=== PATIENT | female | born 1965 | race American Indian/Alaskan Native ===

== ENCOUNTER 2022-01-12 04:04 | Inpatient (IN) | payer MEDICAID ==
--- NOTE | 2022-01-12 04:44 | XRay Report ---
CHEST 1 VIEW 01/12/2022 3:35 AM INDICATION / CLINICAL INFORMATION: Dyspnea. COMPARISON: None available. FINDINGS: SUPPORT DEVICES: None. HEART / MEDIASTINUM: No significant abnormality. LUNGS / PLEURA: Mild increased interstitial markings greater inferiorly. No pneumothorax. ADDITIONAL FINDINGS: No significant additional findings. IMPRESSION: Mild vascular congestion/edema. Signer Name: Leon Sim MD Signed: 01/12/2022 4:39 AM Workstation Name: [id number]
[2022-01-12] MEDS ORDERED: IPRATROPIUM 0.02% NEBU 2.5 ML IH ONE (05:13)
[2022-01-12] MEDS ORDERED: ALBUTEROL 2.5 MG/3 ML NEBU IH ONE (05:13)
[2022-01-12 05:15] LABS: Basophils % (Auto) 0.3 % (0.0-1.8); Eosinophils # (Auto) 0.2 K/mm3 (0.0-0.4); Eosinophils % (Auto) 2.5 % (0.0-4.3); Hematocrit 44.6 % (30.3-42.9); Hemoglobin 14.6 gm/dl (10.1-14.3); Lymphocytes # (Auto) 3.5 K/mm3 (1.2-5.4); Lymphocytes % (Auto) 37.5 % (13.4-35.0); Mean Corpuscular HGB Conc 33 % (30-34); Mean Corpuscular Volume 88 fl (79-97); Monocytes # (Auto) 0.6 K/mm3 (0.0-0.8); Monocytes % (Auto) 6.3 % (0.0-7.3); Platelet Count 259 K/mm3 (140-440); Red Blood Count 5.05 M/mm3 (3.65-5.03); Red Cell Distribution Width 15.4 % (13.2-15.2)
[2022-01-12 05:21] LABS: INR 0.97 (0.87-1.13)
[2022-01-12 05:32] LABS: Creatine Kinase MB 7.9 ng/mL (0.0-4.0)
[2022-01-12 05:33] LABS: Alanine Aminotransferase 15 units/L (7-56); Albumin 4.1 g/dL (3.9-5); BUN/Creatinine Ratio 17; Blood Urea Nitrogen 19 mg/dL (7-17); Calcium 9.3 mg/dL (8.4-10.2); Hemolysis Index 10
[2022-01-12] MEDS ORDERED: FUROSEMIDE 40 MG/4 ML INJ IV ONE (05:34)
--- NOTE | 2022-01-12 05:54 | Emergency Department Report ---
ED Shortness of Breath HPI - General Chief Complaint: Dyspnea/Respdistress Stated Complaint: POSS STEMI Time Seen by Provider: 01/12/22 04:13 Source: patient, EMS Mode of arrival: Stretcher Limitations: No Limitations - History of Present Illness Initial Comments: 56 YR OLD FEMALE W/ CHEST PAIN & RESPIRATORY DISTRESSpt is currently on home o2 2 litres, started having CP and MD JUDAH Complaint: shortness of breath -: Gradual, days(s) Pain Scale: 3 Consistency: intermittent Improves With: nothing, oxygen Associated Symptoms: chest pain - Related Data Home Oxygen Therapy: Yes Home Oxygen Amount: 2 Liters Home Medications Medication Instructions Recorded Confirmed Last Taken No Known Home Medications [No 01/13/22 01/15/22 Unknown Reported Home Medications] Allergies Allergy/AdvReac Type Severity Reaction Status Date / Time No Known Allergies Allergy Unverified 01/12/22 04:36 ED Review of Systems ROS: Stated complaint: POSS STEMI Other details as noted in HPI Constitutional: denies: chills, fever Eyes: denies: eye pain, eye discharge, vision change ENT: denies: ear pain, throat pain Respiratory: denies: cough, shortness of breath, wheezing Cardiovascular: denies: chest pain, palpitations Endocrine: no symptoms reported Gastrointestinal: denies: abdominal pain, nausea, diarrhea Genitourinary: denies: urgency, dysuria, discharge Musculoskeletal: denies: back pain, joint swelling, arthralgia Skin: denies: rash, lesions Neurological: denies: headache, weakness, paresthesias Psychiatric: denies: anxiety, depression Hematological/Lymphatic: denies: easy bleeding, easy bruising ED Past Medical Hx - Past Medical History Hx Hypertension: Yes Hx Diabetes: Yes Hx Asthma: Yes - Social History Smoking Status: Unknown if ever smoked Substance Use Type: Alcohol - Medications Home Medications: Home Medications Medication Instructions Recorded Confirmed Last Taken Type No Known Home Medications [No 01/13/22 01/15/22 Unknown History Reported Home Medications] ED Physical Exam - General Limitations: No Limitations General appearance: alert, in distress - Head Head exam: Present: atraumatic, normocephalic - Eye Eye exam: Present: normal appearance - ENT ENT exam: Present: mucous membranes moist - Neck Neck exam: Present: normal inspection - Respiratory Respiratory exam: Present: normal lung sounds bilaterally, respiratory distress, wheezes, rales - Cardiovascular Cardiovascular Exam: Present: regular rate, normal rhythm. Absent: systolic murmur, diastolic murmur, rubs, gallop - GI/Abdominal GI/Abdominal exam: Present: soft, normal bowel sounds - Extremities Exam Extremities exam: Present: normal inspection - Back Exam Back exam: Present: normal inspection - Neurological Exam Neurological exam: Present: alert, oriented X3 - Psychiatric Psychiatric exam: Present: normal affect, normal mood - Skin Skin exam: Present: warm, dry, intact, normal color. Absent: rash ED Course Vital Signs 01/12/22 01/12/22 01/12/22 04:16 04:30 04:32 Temperature 98.5 F Pulse Rate 96 H 100 H 100 H Pulse Rate [ Anterior Bilateral Throughout] Respiratory 22 34 H 21 Rate Respiratory Rate [Anterior Bilateral Throughout] Blood Pressure 184/92 180/90 Blood Pressure [Left] O2 Sat by Pulse 100 100 Oximetry 01/12/22 01/12/22 01/12/22 04:45 04:50 05:01 Temperature Pulse Rate 99 H 97 H Pulse Rate [ 93 H Anterior Bilateral Throughout] Respiratory 21 18 Rate Respiratory 24 Rate [Anterior Bilateral Throughout] Blood Pressure 180/90 153/84 Blood Pressure [Left] O2 Sat by Pulse 90 Oximetry 01/12/22 01/12/22 01/12/22 05:15 05:31 05:45 Temperature Pulse Rate 96 H 102 H 100 H Pulse Rate [ Anterior Bilateral Throughout] Respiratory 19 20 17 Rate Respiratory Rate [Anterior Bilateral Throughout] Blood Pressure 153/84 176/83 176/83 Blood Pressure [Left] O2 Sat by Pulse 93 97 96 Oximetry 01/12/22 01/12/22 01/12/22 06:01 06:15 06:16 Temperature Pulse Rate 103 H 94 H Pulse Rate [ Anterior Bilateral Throughout] Respiratory 20 20 Rate Respiratory Rate [Anterior Bilateral Throughout] Blood Pressure 157/81 157/81 Blood Pressure [Left] O2 Sat by Pulse 93 96 94 Oximetry 01/12/22 01/12/22 01/12/22 06:30 07:01 07:31 Temperature Pulse Rate 94 H 93 H 94 H Pulse Rate [ Anterior Bilateral Throughout] Respiratory 19 17 19 Rate Respiratory Rate [Anterior Bilateral Throughout] Blood Pressure 157/81 139/67 145/74 Blood Pressure [Left] O2 Sat by Pulse 96 98 98 Oximetry 01/12/22 01/12/22 01/12/22 07:45 08:01 08:31 Temperature Pulse Rate 95 H 91 H 89 Pulse Rate [ Anterior Bilateral Throughout] Respiratory 17 18 21 Rate Respiratory Rate [Anterior Bilateral Throughout] Blood Pressure 145/74 160/78 134/72 Blood Pressure [Left] O2 Sat by Pulse 97 96 96 Oximetry 01/12/22 01/12/22 01/12/22 09:01 09:15 09:31 Temperature Pulse Rate 87 89 89 Pulse Rate [ Anterior Bilateral Throughout] Respiratory 16 18 14 Rate Respiratory Rate [Anterior Bilateral Throughout] Blood Pressure 148/80 148/80 143/87 Blood Pressure [Left] O2 Sat by Pulse 97 100 99 Oximetry 01/12/22 01/12/22 01/12/22 09:45 10:01 10:15 Temperature Pulse Rate 88 88 85 Pulse Rate [ Anterior Bilateral Throughout] Respiratory 15 13 16 Rate Respiratory Rate [Anterior Bilateral Throughout] Blood Pressure 143/87 172/83 172/83 Blood Pressure [Left] O2 Sat by Pulse 99 100 98 Oximetry 01/12/22 01/12/22 01/12/22 10:31 10:45 11:01 Temperature Pulse Rate 86 85 84 Pulse Rate [ Anterior Bilateral Throughout] Respiratory 15 16 16 Rate Respiratory Rate [Anterior Bilateral Throughout] Blood Pressure 139/80 172/83 155/73 Blood Pressure [Left] O2 Sat by Pulse 98 98 98 Oximetry 01/12/22 01/12/22 01/12/22 11:15 11:31 12:01 Temperature Pulse Rate 86 87 91 H Pulse Rate [ Anterior Bilateral Throughout] Respiratory 21 15 16 Rate Respiratory Rate [Anterior Bilateral Throughout] Blood Pressure 132/70 167/87 169/116 Blood Pressure [Left] O2 Sat by Pulse 99 100 99 Oximetry 01/12/22 01/12/22 01/12/22 12:15 12:30 12:45 Temperature Pulse Rate 89 87 94 H Pulse Rate [ Anterior Bilateral Throughout] Respiratory 15 14 20 Rate Respiratory Rate [Anterior Bilateral Throughout] Blood Pressure 169/116 179/91 169/116 Blood Pressure [Left] O2 Sat by Pulse 98 99 96 Oximetry 01/12/22 01/12/22 01/12/22 13:01 13:15 13:31 Temperature Pulse Rate 95 H 89 88 Pulse Rate [ Anterior Bilateral Throughout] Respiratory 28 H 16 19 Rate Respiratory Rate [Anterior Bilateral Throughout] Blood Pressure 157/83 179/91 140/66 Blood Pressure [Left] O2 Sat by Pulse 96 98 98 Oximetry 01/12/22 01/12/22 01/12/22 13:45 14:01 14:15 Temperature Pulse Rate 88 87 87 Pulse Rate [ Anterior Bilateral Throughout] Respiratory 19 22 20 Rate Respiratory Rate [Anterior Bilateral Throughout] Blood Pressure 140/66 141/66 141/66 Blood Pressure [Left] O2 Sat by Pulse 98 95 93 Oximetry 01/12/22 01/12/22 01/12/22 15:31 15:45 16:01 Temperature Pulse Rate 84 87 87 Pulse Rate [ Anterior Bilateral Throughout] Respiratory 19 21 16 Rate Respiratory Rate [Anterior Bilateral Throughout] Blood Pressure 146/68 146/68 181/85 Blood Pressure [Left] O2 Sat by Pulse 94 94 97 Oximetry 01/12/22 01/12/22 01/12/22 16:15 16:31 16:45 Temperature Pulse Rate 85 84 84 Pulse Rate [ Anterior Bilateral Throughout] Respiratory 22 22 20 Rate Respiratory Rate [Anterior Bilateral Throughout] Blood Pressure 181/85 151/66 151/66 Blood Pressure [Left] O2 Sat by Pulse 98 97 94 Oximetry 01/12/22 01/12/22 01/12/22 17:01 17:57 18:01 Temperature Pulse Rate 84 93 H Pulse Rate [ Anterior Bilateral Throughout] Respiratory 24 29 H Rate Respiratory Rate [Anterior Bilateral Throughout] Blood Pressure 145/67 175/91 Blood Pressure [Left] O2 Sat by Pulse 97 93 98 Oximetry 01/12/22 01/12/22 01/12/22 18:17 18:31 18:45 Temperature 98.2 F Pulse Rate 95 H 94 H Pulse Rate [ Anterior Bilateral Throughout] Respiratory 22 18 Rate Respiratory Rate [Anterior Bilateral Throughout] Blood Pressure 136/115 169/81 Blood Pressure [Left] O2 Sat by Pulse 94 94 Oximetry 01/12/22 01/12/22 01/12/22 19:01 19:15 19:31 Temperature Pulse Rate 94 H 91 H 94 H Pulse Rate [ Anterior Bilateral Throughout] Respiratory 26 H 20 20 Rate Respiratory Rate [Anterior Bilateral Throughout] Blood Pressure 176/86 176/86 152/70 Blood Pressure [Left] O2 Sat by Pulse 98 100 Oximetry 01/12/22 01/12/22 01/12/22 19:45 20:15 20:31 Temperature 98.3 F Pulse Rate 98 H 95 H 94 H Pulse Rate [ Anterior Bilateral Throughout] Respiratory 21 17 23 Rate Respiratory Rate [Anterior Bilateral Throughout] Blood Pressure 168/81 127/64 Blood Pressure 152/70 [Left] O2 Sat by Pulse 97 Oximetry ED Medical Decision Making - Lab Data Result diagrams: 01/12/22 04:29 01/18/22 08:29 - EKG Data -: EKG Interpreted by Me EKG shows normal: sinus rhythm - EKG Data Interpretation: [facility] Critical care attestation.: If time is entered above; I have spent that time in minutes in the direct care of this critically ill patient, excluding procedure time. ED Disposition Clinical Impression: SOB (shortness of breath) Acute exacerbation of CHF (congestive heart failure) Qualifiers: Heart failure type: combined systolic and diastolic Qualified Code(s): I50.43 - Acute on chronic combined systolic (congestive) and diastolic (congestive) heart failure Disposition: 09 ADMITTED INPATIENT Is pt being admited?: Yes Does the pt Need Aspirin: No Condition: Stable
--- NOTE | 2022-01-12 07:14 | Cat Scan Report ---
CTA CHEST WITH CONTRAST INDICATION / CLINICAL INFORMATION: Shortness of breath. TECHNIQUE: Axial CT images were obtained through the chest after injection of Omnipaque 350, 100 cc I V contrast. 3 plane MIP and/or 3D reconstructions were produced. All CT scans at this location are pe rformed using CT dose reduction for ALARA by means of automated exposure control. COMPARISON: None available. FINDINGS: PULMONARY ARTERIES: No pulmonary emboli. THORACIC AORTA: No significant abnormality. HEART: No significant abnormality. CORONARY ARTERY CALCIFICATION: Mild. MEDIASTINUM / [place]: No significant abnormality. PLEURA: No pleural effusion. No pneumothorax. LUNGS: Mild edema. Mild basilar atelectasis right greater than left. No dense infiltrate. ADDITIONAL FINDINGS: Prominent thickening of the distal esophagus. UPPER ABDOMEN: No acute findings. SKELETAL STRUCTURES: No significant osseous abnormality. IMPRESSION: 1. No CT evidence for pulmonary embolism. 2. Mild edema in basilar atelectasis. 3. Prominent thickening of the distal esophagus. Peptic disease versus underlying lesion. Signer Name: Leon Sim MD Signed: 01/12/2022 7:09 AM Workstation Name: [id number]
--- NOTE | 2022-01-12 16:56 | History and Physical Report ---
History of Present Illness Date of examination: 01/12/22 Date of admission: 01/12/2022 Chief complaint: Increasing shortness of breath for 3 days History of present illness: 56-year-old female with history of CHF hypertension and diabetes not on any medications and no follow-up with any physician because of her financial condition comes in for increasing shortness of breath for the last 3 days associated with orthopnea. Shortness of breath is on minimal exertion walking up to 10 steps. Consistent with class IV NYHA symptoms. No PND attacks. No chest pain. No fever or chills. No cough. Patient was hypoxic while in the emergency room needing 3 L of nasal cannula oxygen - Past Medical History --Hypertension: Yes --Diabetes: Yes --Asthma: Yes - Past surgical history right leg fracture with surgery 3 - Family history --Htn - Social History Smoking Status: Unknown if ever smoked Substance Use Type: Alcohol Review of Systems --ROS: Stated complaint: POSS STEMI Other details as noted in HPI Constitutional: denies: chills, fever Eyes: denies: eye pain, eye discharge, vision change ENT: denies: ear pain, throat pain Respiratory: denies: cough, shortness of breath, wheezing Cardiovascular: denies: chest pain, palpitations Endocrine: no symptoms reported Gastrointestinal: denies: abdominal pain, nausea, diarrhea Genitourinary: denies: urgency, dysuria, discharge Musculoskeletal: denies: back pain, joint swelling, arthralgia Skin: denies: rash, lesions Neurological: denies: headache, weakness, paresthesias Psychiatric: denies: anxiety, depression Hematological/Lymphatic: denies: easy bleeding, easy bruising Medications and Allergies Allergies Allergy/AdvReac Type Severity Reaction Status Date / Time No Known Allergies Allergy Unverified 01/12/22 04:36 Exam - Constitutional Vitals: Temp Pulse Resp BP Pulse Ox 98.5 F 85 22 181/85 98 01/12/22 04:32 01/12/22 16:15 01/12/22 16:15 01/12/22 16:15 01/12/22 16:15 General appearance: Present: mild distress, well-nourished - EENT Eyes: Present: PERRL ENT: hearing intact, clear oral mucosa - Neck Neck: Present: supple, normal ROM - Respiratory Respiratory effort: normal Respiratory: bilateral: CTA, rales (scattered) - Cardiovascular Heart rate: 97 Rhythm: regular Heart Sounds: Present: S1 & S2. Absent: rub, click - Extremities Extremities: pulses symmetrical, No edema Peripheral Pulses: within normal limits - Abdominal General gastrointestinal: Present: soft, non-tender, non-distended, normal bowel sounds Female genitourinary: Present: normal - Rectal Rectal Exam: deferred - Integumentary Integumentary: Present: clear, warm, dry - Musculoskeletal Musculoskeletal: gait normal, strength equal bilaterally - Psychiatric Psychiatric: appropriate mood/affect, intact judgment & insight - Neurologic Neurologic: CNII-XII intact, moves all extremities - Allied Health Allied health notes reviewed: nursing, case management HEART Score - HEART Score History: Moderately suspicious Age: 45-65 Risk factors: > 3 risk factors or hx of atherosclerotic disease Troponin: Troponin T < 0.010 ng/mL (0.00-0.029) 01/12/22 04:29 - Critical Actions Critical Actions: 4-6 pts:12-16.6% risk of adverse cardiac event. Should be admitted Results - Labs CBC & Chem 7: 01/12/22 04:29 01/13/22 03:50 Labs: Laboratory Last Values WBC 9.3 K/mm3 (4.5-11.0) 01/12/22 04:29 RBC 5.05 M/mm3 (3.65-5.03) H 01/12/22 04:29 Hgb 14.6 gm/dl (10.1-14.3) H 01/12/22 04:29 Hct 44.6 % (30.3-42.9) H 01/12/22 04:29 MCV 88 fl (79-97) 01/12/22 04:29 MCH 29 pg (28-32) 01/12/22 04:29 MCHC 33 % (30-34) 01/12/22 04:29 RDW 15.4 % (13.2-15.2) H 01/12/22 04:29 Plt Count 259 K/mm3 (140-440) 01/12/22 04:29 Lymph % (Auto) 37.5 % (13.4-35.0) H 01/12/22 04:29 Carbon % (Auto) 6.3 % (0.0-7.3) 01/12/22 04:29 Eos % (Auto) 2.5 % (0.0-4.3) 01/12/22 04:29 Baso % (Auto) 0.3 % (0.0-1.8) 01/12/22 04:29 Lymph # (Auto) 3.5 K/mm3 (1.2-5.4) 01/12/22 04:29 Carbon # (Auto) 0.6 K/mm3 (0.0-0.8) 01/12/22 04:29 Eos # (Auto) 0.2 K/mm3 (0.0-0.4) 01/12/22 04:29 Baso # (Auto) 0.0 K/mm3 (0.0-0.1) 01/12/22 04:29 Seg Neutrophils % 53.4 % (40.0-70.0) 01/12/22 04:29 Seg Neutrophils # 5.0 K/mm3 (1.8-7.7) 01/12/22 04:29 PT 13.9 Sec. (12.2-14.9) 01/12/22 04:29 INR 0.97 (0.87-1.13) 01/12/22 04:29 D-Dimer 242.29 ng/mlDDU (0-234) H 01/12/22 04:29 Sodium 137 mmol/L (137-145) 01/12/22 04:29 Potassium 3.5 mmol/L (3.6-5.0) L 01/12/22 04:29 Chloride 97.3 mmol/L (98-107) L 01/12/22 04:29 Carbon Dioxide 27 mmol/L (22-30) 01/12/22 04:29 Anion Gap 16 mmol/L 01/12/22 04:29 BUN 19 mg/dL (7-17) H 01/12/22 04:29 Creatinine 1.1 mg/dL (0.6-1.2) 01/12/22 04:29 Estimated GFR > 60 ml/min 01/12/22 04:29 BUN/Creatinine Ratio 17 % 01/12/22 04:29 Glucose 274 mg/dL (65-100) H 01/12/22 04:29 Lactic Acid 2.00 mmol/L (0.7-2.0) 01/12/22 04:29 Calcium 9.3 mg/dL (8.4-10.2) 01/12/22 04:29 Magnesium 2.70 mg/dL (1.7-2.3) H 01/12/22 04:29 Total Bilirubin 0.30 mg/dL (0.1-1.2) 01/12/22 04:29 AST 23 units/L (5-40) 01/12/22 04:29 ALT 15 units/L (7-56) 01/12/22 04:29 Alkaline Phosphatase 126 units/L (35-129) 01/12/22 04:29 Total Creatine Kinase 321 units/L (30-135) H 01/12/22 04:29 CK-MB (CK-2) 7.9 ng/mL (0.0-4.0) H 01/12/22 04:29 CK-MB (CK-2) Rel Index 2.4 (0-4) 01/12/22 04:29 Troponin T < 0.010 ng/mL (0.00-0.029) 01/12/22 04:29 NT-Pro-B Natriuret Pep 76.30 pg/mL (0-900) 01/12/22 04:29 Total Protein 7.6 g/dL (6.3-8.2) 01/12/22 04:29 Albumin 4.1 g/dL (3.9-5) 01/12/22 04:29 Albumin/Globulin Ratio 1.2 % 01/12/22 04:29 Lipase 21 units/L (13-60) 01/12/22 04:29 Short CBC 01/12/22 Range/Units 04:29 WBC 9.3 (4.5-11.0) K/mm3 Hgb 14.6 H (10.1-14.3) gm/dl Hct 44.6 H (30.3-42.9) % Plt Count 259 (140-440) K/mm3 BMP 01/12/22 04:29 Sodium 137 Potassium 3.5 L Chloride 97.3 L Carbon Dioxide 27 BUN 19 H Creatinine 1.1 Glucose 274 H Calcium 9.3 Cardiac Enzymes 01/12/22 Range/Units 04:29 Total Creatine Kinase 321 H (30-135) units/L CK-MB (CK-2) 7.9 H (0.0-4.0) ng/mL Troponin T < 0.010 (0.00-0.029) ng/mL Liver Function 01/12/22 Range/Units 04:29 Total Bilirubin 0.30 (0.1-1.2) mg/dL AST 23 (5-40) units/L ALT 15 (7-56) units/L Alkaline Phosphatase 126 (35-129) units/L Albumin 4.1 (3.9-5) g/dL [facility] 01/13/22 03:50 Sodium 141 Potassium 4.4 D Chloride 99.3 Carbon Dioxide 27 BUN 22 H Creatinine 1.0 Glucose 159 H Calcium 9.5 Cardiac Enzymes 01/12/22 01/13/22 Range/Units 17:28 00:13 Troponin T < 0.010 < 0.010 (0.00-0.029) ng/mL Liver Function 01/13/22 Range/Units 03:50 Total Bilirubin 0.20 (0.1-1.2) mg/dL AST 23 (5-40) units/L ALT 15 (7-56) units/L Alkaline Phosphatase 135 H (35-129) units/L Albumin 4.1 (3.9-5) g/dL Urine 01/12/22 Range/Units Unknown Urine Color Yellow (Yellow) Urine pH 5.0 (5.0-7.0) Ur Specific [place] 1.021 (1.003-1.030) Urine Protein 30 mg/dl (Negative) mg/dL Urine Glucose (UA) 150 (Negative) mg/dL [facility] 01/13/22 03:50 Sodium 141 Potassium 4.4 D Chloride 99.3 Carbon Dioxide 27 BUN 22 H Creatinine 1.0 Glucose 159 H Calcium 9.5 Cardiac Enzymes 01/12/22 01/13/22 Range/Units 17:28 00:13 Troponin T < 0.010 < 0.010 (0.00-0.029) ng/mL Liver Function 01/13/22 Range/Units 03:50 Total Bilirubin 0.20 (0.1-1.2) mg/dL AST 23 (5-40) units/L ALT 15 (7-56) units/L Alkaline Phosphatase 135 H (35-129) units/L Albumin 4.1 (3.9-5) g/dL Urine 01/12/22 Range/Units Unknown Urine Color Yellow (Yellow) Urine pH 5.0 (5.0-7.0) Ur Specific [place] 1.021 (1.003-1.030) Urine Protein 30 mg/dl (Negative) mg/dL Urine Glucose (UA) 150 (Negative) mg/dL - Imaging and Cardiology EKG: report reviewed (Sinus rhythm, biatrial enlargement and LVH by voltage criteria) Chest x-ray: report reviewed Imaging and Cardiology: Chest x-ray Mild vascular congestion/edema CTA chest No CT evidence for pulmonary embolism Mild edema and basilar atelectasis Prominent thickening of the distal esophagus.. Peptic disease versus underlying lesion check minus about document clinical care. In the white Assessment and Plan Advance Directives: Yes (Full code) VTE prophylaxis?: Chemical Plan of care discussed with patient/family: Yes - Patient Problems (1) Acute respiratory failure with hypoxia Current Visit: Yes Status: Acute Plan to address problem: Patient was hypoxic initially Improved with 3 L nasal cannula oxygen (2) Acute exacerbation of CHF (congestive heart failure) Current Visit: Yes Status: Acute Qualifiers: Heart failure type: combined systolic and diastolic Qualified Code(s): I50.43 - Acute on chronic combined systolic (congestive) and diastolic (congestive) heart failure Plan to address problem: Patient admitted for CHF exacerbation Patient initiated on IV Lasix 40mg Q12 and Aldactone 50mg QD Daily intake and output Daily weight Echocardiogram for Ejection Fraction, wall motion abnormalities and valve dysfunction (3) Hypertension Current Visit: Yes Status: Chronic Qualifiers: Hypertension type: primary hypertension Qualified Code(s): I10 - Essential (primary) hypertension Plan to address problem: Patient not on any blood pressure medication No home medications reconciled Will start the patient on Losartan 50mg once a day Will add Coreg if necessary (4) T2DM (type 2 diabetes mellitus) Current Visit: Yes Status: Chronic Qualifiers: Diabetes mellitus senior care insulin use: unspecified senior care insulin use status Plan to address problem: Accuchecks AC and HS Sliding scale coverage with high dose Humalog Check Hb A1C (5) Dyslipidemia Current Visit: Yes Status: Chronic Plan to address problem: Patient initiated on Crestor 10mg PO QD (6) DVT prophylaxis Current Visit: Yes Status: Acute Plan to address problem: On anticoagulation and GI prophylaxis (7) Advance care planning Current Visit: Yes Status: Acute Plan to address problem: Disease management discussed; diagnosis, prognosis discussed with the patient. Care plan discussed; patient acknowledged care plan
[2022-01-12] MEDS ORDERED: ONDANSETRON 4 MG/2 ML INJ IV PRN (16:57)
[2022-01-12] MEDS ORDERED: ACETAMINOPHEN 325 MG TAB PO PRN (16:57)
[2022-01-12] MEDS ORDERED: METOCLOPRAMIDE 10 MG/2 ML INJ IV PRN (16:57)
[2022-01-12] MEDS ORDERED: INSULIN LISPRO 100 UNIT/ML SUB-Q ONE (17:30)
[2022-01-12 17:41] LABS: Bilirubin,Urine NEG (Negative); Blood,Urine SM (Negative); Color,Urine Yellow (Yellow); Urobilinogen,Urine < 2.0 mg/dL (<2.0)
[2022-01-12 17:57] LABS: Amphetamine Screen,Urine PRESUMPTIVE NEGATIVE; Benzodiazepines Screen,Urine PRESUMPTIVE NEGATIVE; Cannabinoid Screen,Urine PRESUMPTIVE NEGATIVE; Cocaine Screen,Urine PRESUMPTIVE POSITIVE; Methadone Screen,Urine PRESUMPTIVE NEGATIVE; Opiate Screen,Urine PRESUMPTIVE NEGATIVE
[2022-01-12] MEDS: FUROSEMIDE 40 MG/4 ML INJ IV SCH (17:57)
[2022-01-12] MEDS: HEPARIN 5,000 UNIT/1 ML VIAL SUB-Q SCH (23:53)
[2022-01-12] MEDS: FAMOTIDINE 10 MG TAB PO SCH (23:53)
[2022-01-13] MEDS: SPIRONOLACTONE 50 MG TAB PO SCH ×2 (00:05→09:56)
[2022-01-13] MEDS: MORPHINE 2 MG/1 ML INJ IV PRN (00:30)
[2022-01-13] MEDS ORDERED: ZOLPIDEM 5 MG TAB PO ONE (01:25)
[2022-01-13] MEDS: ALBUTEROL 2.5 MG/3 ML NEBU IH PRN (04:30)
[2022-01-13 05:05] LABS: Alanine Aminotransferase 15 units/L (7-56); Albumin 4.1 g/dL (3.9-5); BUN/Creatinine Ratio 22; Blood Urea Nitrogen 22 mg/dL (7-17); Calcium 9.5 mg/dL (8.4-10.2); Hemolysis Index 3
[2022-01-13] MEDS: FUROSEMIDE 40 MG/4 ML INJ IV SCH ×2 (05:09→17:59)
[2022-01-13] MEDS: IPRATROPIUM 0.02% NEBU 2.5 ML IH SCH ×5 (05:22→20:05)
--- NOTE | 2022-01-13 08:56 | Electrocardiograph Report ---
[facility] Test Date: 2022-01-12 Test Time: 04:10:35 Pat Name: NORY REESE Department: Room: A481 Gender: F Fiscal Agent: PRINCE : 1965 Requested By: KAROLINA BERG Order Number: [id number] Reading MD: Cordell Osborn Measurements Intervals [place] Rate: 97 P: 78 RI: 190 QRS: 75 QRSD: 88 T: 81 QT: 366 QTc: 465 Interpretive Statements Sinus rhythm Biatrial enlargement non-specific st-t No previous ECG available for comparison Electronically Signed On 01-13-2022 8:56:25 EDT by Cordell Osborn
[2022-01-13] MEDS: HEPARIN 5,000 UNIT/1 ML VIAL SUB-Q SCH ×2 (09:56→22:13)
[2022-01-13] MEDS: FAMOTIDINE 10 MG TAB PO SCH ×2 (09:56→22:13)
[2022-01-13] MEDS: INSULIN LISPRO 100 UNIT/ML SUB-Q SCH ×3 (13:12→22:13)
[2022-01-14] MEDS: FUROSEMIDE 40 MG/4 ML INJ IV SCH ×2 (06:09→18:31)
[2022-01-14] MEDS: IPRATROPIUM 0.02% NEBU 2.5 ML IH SCH ×5 (07:57→21:01)
[2022-01-14] MEDS: metFORMIN 500 MG TAB PO SCH ×2 (08:24→18:31)
[2022-01-14] MEDS: glipiZIDE XL 5 MG TAB PO SCH (08:24)
[2022-01-14] MEDS: INSULIN LISPRO 100 UNIT/ML SUB-Q SCH ×3 (08:25→22:25)
[2022-01-14] MEDS: SPIRONOLACTONE 50 MG TAB PO SCH (10:44)
[2022-01-14] MEDS: HEPARIN 5,000 UNIT/1 ML VIAL SUB-Q SCH ×2 (10:47→22:23)
[2022-01-14] MEDS: FAMOTIDINE 10 MG TAB PO SCH ×2 (10:47→22:24)
--- NOTE | 2022-01-14 12:18 | Progress Note ---
Assessment and Plan - Patient Problems (1) Acute respiratory failure with hypoxia Current Visit: Yes Status: Acute Plan to address problem: Patient was hypoxic initially Improved with 3 L nasal cannula oxygen (2) Acute exacerbation of CHF (congestive heart failure) Current Visit: Yes Status: Acute Qualifiers: Heart failure type: combined systolic and diastolic Qualified Code(s): I50.43 - Acute on chronic combined systolic (congestive) and diastolic (congestive) heart failure Plan to address problem: Patient admitted for CHF exacerbation Patient initiated on IV Lasix 40mg Q12 and Aldactone 50mg QD Daily intake and output Daily weight Echocardiogram for Ejection Fraction, wall motion abnormalities and valve dysfunction (3) Hypertension Current Visit: Yes Status: Chronic Qualifiers: Hypertension type: primary hypertension Qualified Code(s): I10 - Essential (primary) hypertension Plan to address problem: Patient not on any blood pressure medication No home medications reconciled Will start the patient on Losartan 50mg once a day Will add Coreg if necessary (4) T2DM (type 2 diabetes mellitus) Current Visit: Yes Status: Chronic Qualifiers: Diabetes mellitus watermaster insulin use: unspecified watermaster insulin use status Plan to address problem: Accuchecks AC and HS Sliding scale coverage with high dose Humalog Check Hb A1C (5) Dyslipidemia Current Visit: Yes Status: Chronic Plan to address problem: Patient initiated on Crestor 10mg PO QD (6) DVT prophylaxis Current Visit: Yes Status: Acute Plan to address problem: On anticoagulation and GI prophylaxis (7) Advance care planning Current Visit: Yes Status: Acute Plan to address problem: Disease management discussed; diagnosis, prognosis discussed with the patient. Care plan discussed; patient acknowledged care plan Subjective Date of service: 01/13/22 Principal diagnosis: CHF exacerbation Interval history: Awildae 89-year-old -[place] pleasant male with history of hypertension, PAD, chronic kidney disease, diabetes BPH and symptomatic bradycardia/high-grade AV block/PPM and mild dementia comes in for removal lower extremity swelling for 2 weeks. Also shortness of breath on exertion. Patient was recently assessed on 01/08/2022 in the [facility]. Patient is not clear about his outpatient work-up in [facility] on 01/08/2023. Per daughter patient has bilateral lower extremity swelling and elevated creatinine. Patient is asked to follow-up as an outpatient with [facility]. Patient had a weight gain of almost 30 to 40 pounds in the last 1 or 2 weeks. No diuretics were prescribed. Patient was referred from [facility] heart specialists/[place] for direct admission. No fever or chills. Shortness of breath on exertion present. But no orthopnea. Objective - Constitutional Vitals: Vital Signs - 12hr 01/14/22 01/14/22 01/14/22 04:04 07:30 08:00 Temperature 98.8 F Pulse Rate 96 H 86 Pulse Rate [ Anterior Bilateral Throughout] Pulse Rate [ 82 Radial] Respiratory 24 20 Rate Respiratory Rate [Anterior Bilateral Throughout] Blood Pressure 167/95 O2 Sat by Pulse 94 96 Oximetry 01/14/22 01/14/22 01/14/22 09:38 09:41 10:44 Temperature Pulse Rate 84 Pulse Rate [ 96 H Anterior Bilateral Throughout] Pulse Rate [ Radial] Respiratory Rate Respiratory 18 Rate [Anterior Bilateral Throughout] Blood Pressure 122/71 O2 Sat by Pulse 98 Oximetry General appearance: Present: no acute distress, well-nourished - EENT Eyes: PERRL, EOM intact ENT: hearing intact, clear oral mucosa Ears: bilateral: normal - Neck Neck: supple, normal ROM - Respiratory Respiratory effort: normal Respiratory: bilateral: CTA - Breasts Breasts: normal - Cardiovascular Rhythm: regular Heart Sounds: Present: S1 & S2. Absent: gallop, rub Extremities: pulses intact, No edema, normal color, Full ROM - Gastrointestinal General gastrointestinal: Present: soft, non-tender, non-distended, normal bowel sounds - Genitourinary Female genitourinary: normal - Integumentary Integumentary: clear, warm, dry - Musculoskeletal Musculoskeletal: 1, strength equal bilaterally - Neurologic Neurologic: moves all extremities - Psychiatric Psychiatric: memory intact, appropriate mood/affect, intact judgment & insight - Labs CBC & Chem 7: 01/12/22 04:29 01/13/22 03:50 Labs: Abnormal lab results 01/13/22 01/13/22 01/14/22 Range/Units 16:42 20:38 08:11 POC Glucose 117 H 251 H 156 H (70-105) mg/dL 01/14/22 Range/Units 11:47 POC Glucose 204 H (70-105) mg/dL HEART Score - HEART Score Age: 45-65 Risk factors: > 3 risk factors or hx of atherosclerotic disease Troponin: Troponin T < 0.010 ng/mL (0.00-0.029) 01/13/22 00:13 - Critical Actions Critical Actions: 4-6 pts:12-16.6% risk of adverse cardiac event. Should be admitted
[2022-01-15] MEDS: FUROSEMIDE 40 MG/4 ML INJ IV SCH (06:50)
[2022-01-15] MEDS: INSULIN LISPRO 100 UNIT/ML SUB-Q SCH ×5 (07:33→21:36)
[2022-01-15] MEDS: IPRATROPIUM 0.02% NEBU 2.5 ML IH SCH ×3 (07:45→21:50)
--- NOTE | 2022-01-15 09:06 | Progress Note ---
Assessment and Plan - Patient Problems (1) Acute respiratory failure with hypoxia Current Visit: Yes Status: Acute Plan to address problem: Patient was hypoxic initially Improved with 3 L nasal cannula oxygen (2) Acute exacerbation of CHF (congestive heart failure) Current Visit: Yes Status: Acute Qualifiers: Heart failure type: combined systolic and diastolic Qualified Code(s): I50.43 - Acute on chronic combined systolic (congestive) and diastolic (congestive) heart failure Plan to address problem: Patient admitted for CHF exacerbation Patient initiated on IV Lasix 40mg Q12 and Aldactone 50mg QD Daily intake and output Daily weight Echocardiogram for Ejection Fraction, wall motion abnormalities and valve dysfunction (3) Hypertension Current Visit: Yes Status: Chronic Qualifiers: Hypertension type: primary hypertension Qualified Code(s): I10 - Essential (primary) hypertension Plan to address problem: Patient not on any blood pressure medication No home medications reconciled Will start the patient on Losartan 50mg once a day Will add Coreg if necessary (4) T2DM (type 2 diabetes mellitus) Current Visit: Yes Status: Chronic Qualifiers: Diabetes mellitus senior care insulin use: unspecified senior care insulin use status Plan to address problem: Accuchecks AC and HS Sliding scale coverage with high dose Humalog Check Hb A1C (5) Dyslipidemia Current Visit: Yes Status: Chronic Plan to address problem: Patient initiated on Crestor 10mg PO QD (6) DVT prophylaxis Current Visit: Yes Status: Acute Plan to address problem: On anticoagulation and GI prophylaxis (7) Advance care planning Current Visit: Yes Status: Acute Plan to address problem: Disease management discussed; diagnosis, prognosis discussed with the patient. Care plan discussed; patient acknowledged care plan Subjective Date of service: 01/14/22 Objective - Constitutional Vitals: Vital Signs - 12hr 01/14/22 01/14/22 01/15/22 22:00 23:20 07:40 Temperature 99.7 F H 98.9 F Pulse Rate 106 H 94 H Respiratory 20 15 Rate Blood Pressure 106/63 113/69 [Left] O2 Sat by Pulse 97 91 97 Oximetry General appearance: Present: no acute distress, well-nourished - EENT Eyes: PERRL, EOM intact ENT: hearing intact, clear oral mucosa Ears: bilateral: normal - Neck Neck: supple, normal ROM - Respiratory Respiratory effort: normal Respiratory: bilateral: CTA - Breasts Breasts: normal - Cardiovascular Rhythm: regular Heart Sounds: Present: S1 & S2. Absent: gallop, rub Extremities: pulses intact, No edema, normal color, Full ROM - Gastrointestinal General gastrointestinal: Present: soft, non-tender, non-distended, normal bowel sounds - Genitourinary Female genitourinary: normal - Integumentary Integumentary: clear, warm, dry - Musculoskeletal Musculoskeletal: 1, strength equal bilaterally - Neurologic Neurologic: moves all extremities - Psychiatric Psychiatric: memory intact, appropriate mood/affect, intact judgment & insight - Labs CBC & Chem 7: 01/12/22 04:29 01/13/22 03:50 Labs: Abnormal lab results 01/14/22 01/14/22 01/14/22 Range/Units 11:47 15:56 19:47 POC Glucose 204 H 106 H 197 H (70-105) mg/dL HEART Score - HEART Score Age: 45-65 Risk factors: > 3 risk factors or hx of atherosclerotic disease Troponin: Troponin T < 0.010 ng/mL (0.00-0.029) 01/13/22 00:13 - Critical Actions Critical Actions: 4-6 pts:12-16.6% risk of adverse cardiac event. Should be admitted
[2022-01-15] MEDS: HEPARIN 5,000 UNIT/1 ML VIAL SUB-Q SCH ×2 (10:02→21:28)
[2022-01-15] MEDS: FAMOTIDINE 10 MG TAB PO SCH ×2 (10:02→21:28)
[2022-01-15] MEDS: metFORMIN 500 MG TAB PO SCH ×2 (10:02→16:17)
[2022-01-15] MEDS: SPIRONOLACTONE 50 MG TAB PO SCH (10:02)
[2022-01-15] MEDS: glipiZIDE XL 5 MG TAB PO SCH (10:02)
--- NOTE | 2022-01-15 13:41 | Consultation ---
History of Present Illness Consult date: 01/15/22 Consult reason: congestive heart failure History of present illness: The patient is a 56-year-old woman admitted to the hospital 3 days ago with 2- week history of progressive shortness of breath, lower extremity edema, and on presentation here chest x-ray showed mild diffuse interstitial edema. She has shown symptomatic improvement with intravenous diuretics. Cardiology consultation was requested today, for further cardiac assessment. The patient reports no chest pain, and reports no prior cardiac history. She has not seen a physician in many years. She smokes tobacco. Work-up so far in the hospital includes an EKG that showed normal sinus rhythm with left ventricular hypertrophy and nonspecific ST changes. Echocardiogram done on this presentation was reviewed by me. There is normal to hyperdynamic left ventricular systolic function with ejection fraction greater than 65%. There is moderate, concentric left ventricular per trophy. The left atrium is only borderline dilated. There is marked calcification of the mitral annulus and marked thickening of the mitral valve leaflets. A transmitral valve gradient of 4.7 mmHg is consistent with mild mitral stenosis. There is mild jyoti ral regurgitation, mild aortic regurgitation and at least moderate tricuspid regurgitation. Past History Past Medical History: other (Tobacco abuse) Medications and Allergies Allergies Allergy/AdvReac Type Severity Reaction Status Date / Time No Known Allergies Allergy Unverified 01/12/22 04:36 Home Medications Medication Instructions Recorded Confirmed Last Taken Type No Known Home Medications [No 01/13/22 01/15/22 Unknown History Reported Home Medications] Active Meds: Active Medications Acetaminophen (Acetaminophen 325 Mg Tab) 650 mg PO Q4H PRN PRN Reason: Pain MILD(1-3)/Fever >100.5/IGLESIAS Albuterol (Albuterol 2.5 Mg/3 Ml Nebu) 2.5 mg IH Q4HRT PRN PRN Reason: Shortness Of Breath Last Admin: 01/13/22 04:30 Dose: 2.5 mg Famotidine (Famotidine 10 Mg Tab) 10 mg PO BID [facility] Last Admin: 01/15/22 10:02 Dose: 10 mg Glipizide (Glipizide Xl 5 Mg Tab) 5 mg PO DAILY@0800 [facility] Last Admin: 01/15/22 10:02 Dose: 5 mg Heparin Sodium (Porcine) (Heparin 5,000 Unit/1 Ml Vial) 5,000 unit SUB-Q Q12HR [facility] Last Admin: 01/15/22 10:02 Dose: 5,000 unit Insulin Human Lispro (Insulin Lispro 100 Unit/Ml) 0 unit SUB-Q ACHS [facility]; Protocol Last Admin: 01/15/22 11:56 Dose: Not Given Ipratropium Pattison (Ipratropium 0.02% Nebu 2.5 Ml) 0.5 mg IH TIDRT [facility] Last Admin: 01/15/22 07:45 Dose: 0.5 mg Metformin HCl (Metformin 500 Mg Tab) 500 mg PO BIDDIAB [facility] Last Admin: 01/15/22 10:02 Dose: 500 mg Metoclopramide HCl (Metoclopramide 10 Mg/2 Ml Inj) 10 mg IV Q6H PRN PRN Reason: Nausea And Vomiting Morphine Sulfate (Morphine 2 Mg/1 Ml Inj) 2 mg IV Q4H PRN PRN Reason: Pain, Moderate (4-6) Last Admin: 01/13/22 00:30 Dose: 2 mg Ondansetron HCl (Ondansetron 4 Mg/2 Ml Inj) 4 mg IV Q8H PRN PRN Reason: Nausea And Vomiting Sodium Chloride (Sodium Chloride 0.9% 10 Ml Flush Syringe) 10 ml IV BID [facility] Last Admin: 01/15/22 10:50 Dose: Not Given Sodium Chloride (Sodium Chloride 0.9% 10 Ml Flush Syringe) 10 ml IV PRN PRN PRN Reason: LINE FLUSH Spironolactone (Spironolactone 50 Mg Tab) 50 mg PO QDAY [facility] Last Admin: 01/15/22 10:02 Dose: 50 mg Review of Systems Cardiovascular: edema, shortness of breath, no chest pain, no orthopnea, no palpitations, no rapid/irregular heart beat, no syncope, no lightheadedness Physical Examination Vital Signs Pulse Resp Pulse Ox 96 H 22 100 01/12/22 04:16 01/12/22 04:16 01/12/22 04:16 General appearance: no acute distress HEENT: Positive: PERRL, EOMI Neck: Positive: neck supple Cardiac: Positive: Reg Rate and Rhythm Lungs: Positive: Decreased Breath Sounds Neuro: Positive: Grossly Intact Abdomen: Positive: Soft Female genitourinary: deferred Skin: Positive: Clear Extremities: Absent: edema Results 01/12/22 04:29 01/13/22 03:50 EKG interpretations - Telemetry EKG Rhythm: Sinus Rhythm Assessment and Plan - Patient Problems (1) Acute exacerbation of CHF (congestive heart failure) Current Visit: Yes Status: Acute Qualifiers: Heart failure type: combined systolic and diastolic Qualified Code(s): I50.43 - Acute on chronic combined systolic (congestive) and diastolic (congestive) heart failure Plan to address problem: Patient with no prior cardiac history, presents with symptoms and x-ray evidence of acute interstitial edema. Echocardiogram shows normal to hyperdynamic left ventricular systolic function with ejection fraction greater than 65%, but evidence of at least mild mitral stenosis. I will reduce diuretic therapy at this time, to avoid excessive preload reduction. I will order a right and left heart catheterization scheduled for Tuesday.
[2022-01-15] MEDS: NICOTINE 21 MG/24 HR PATCH TD SCH (21:28)
[2022-01-16] MEDS: INSULIN LISPRO 100 UNIT/ML SUB-Q SCH ×4 (08:00→21:50)
--- NOTE | 2022-01-16 09:15 | Progress Note ---
Assessment and Plan Heart failure preserved ejection fraction, no evidence of acute decompensation. Cocaine abuse. Echocardiogram this admission revealing preserved ejection fraction. Patient is euvolemic and asymptomatic. No further invasive cardiac work-up is needed. Subjective Date of service: 01/16/22 Principal diagnosis: CHF exacerbation Interval history: Patient is doing well this morning. She denies any chest pain or shortness of breath. She is walking down the hallway without any distress or restriction. Telemetry showing normal sinus rhythm and sinus tachycardia. Objective Vital Signs Temp Pulse Pulse Resp Resp BP BP 01/16/22 08:40 98.2 F 95 H 17 120/72 01/16/22 03:25 98.5 F 98 H 18 137/76 01/15/22 22:40 98.7 F 102 H 16 118/50 01/15/22 22:00 01/15/22 20:00 88 16 01/15/22 19:10 98.8 F 96 H 16 116/65 01/15/22 14:12 89 16 01/15/22 11:42 97.9 F 89 20 94/52 01/15/22 10:00 Pulse Ox 01/16/22 08:40 01/16/22 03:25 95 01/15/22 22:40 93 01/15/22 22:00 97 01/15/22 20:00 01/15/22 19:10 93 01/15/22 14:12 01/15/22 11:42 94 01/15/22 10:00 97 - Physical Examination HEENT: Positive: PERRL, EOMI Neck: Positive: neck supple Cardiac: Positive: Reg Rate and Rhythm Lungs: Positive: Normal Exam Neuro: Positive: Grossly Intact Abdomen: Positive: Soft Skin: Positive: Clear Extremities: Absent: edema - Imaging and Cardiology EKG: report reviewed (Sinus rhythm, biatrial enlargement and LVH by voltage criteria)
[2022-01-16] MEDS: IPRATROPIUM 0.02% NEBU 2.5 ML IH SCH ×3 (09:58→20:48)
[2022-01-16] MEDS: POTASSIUM CHLORIDE ER 10 MEQ TAB PO SCH (10:48)
[2022-01-16] MEDS: FUROSEMIDE 40 MG TAB PO SCH (10:48)
[2022-01-16] MEDS: ASPIRIN EC 81 MG TAB PO SCH (10:48)
[2022-01-16] MEDS: metFORMIN 500 MG TAB PO SCH ×2 (10:48→16:57)
[2022-01-16] MEDS: SPIRONOLACTONE 50 MG TAB PO SCH (10:48)
[2022-01-16] MEDS: FAMOTIDINE 10 MG TAB PO SCH ×2 (10:49→21:49)
[2022-01-16] MEDS: NICOTINE 21 MG/24 HR PATCH TD SCH (10:49)
[2022-01-16] MEDS: HEPARIN 5,000 UNIT/1 ML VIAL SUB-Q SCH ×2 (10:49→21:49)
[2022-01-16] MEDS: glipiZIDE XL 5 MG TAB PO SCH (10:49)
--- NOTE | 2022-01-16 15:45 | Progress Note ---
Assessment and Plan - Patient Problems (1) Acute respiratory failure with hypoxia Current Visit: Yes Status: Acute Plan to address problem: Improved (2) Acute exacerbation of CHF (congestive heart failure) Current Visit: Yes Status: Acute Qualifiers: Heart failure type: combined systolic and diastolic Qualified Code(s): I50. 43 - Acute on chronic combined systolic (congestive) and diastolic (congestive) heart failure Plan to address problem: Patient admitted for CHF exacerbation Echocardiogram done on this presentation was reviewed by me. There is normal to hyperdynamic left ventricular systolic function with ejection fraction greater than 65%. There is moderate, concentric left ventricular per trophy. The left atrium is only borderline dilated. There is marked calcification of the mitral annulus and marked thickening of the mitral valve leaflets. A transmitral valve gradient of 4.7 mmHg is consistent with mild mitral stenosis. There is mild mitral regurgitation, mild aortic regurgitation and at least moderate tricuspid regurgitation. Patient with no prior cardiac history, presents with symptoms and x-ray evidence of acute interstitial edema. Echocardiogram shows normal to hyperdynamic left ventricular systolic function with ejection fraction greater than 65%, but evidence of at least mild mitral stenosis. Reduce diuretic therapy at this time, to avoid excessive preload reduction. Right and left heart catheterization scheduled for Tuesday. (3) Hypertension Current Visit: Yes Status: Chronic Qualifiers: Hypertension type: primary hypertension Qualified Code(s): I10 - Essential (primary) hypertension Plan to address problem: Patient not on any blood pressure medication No home medications reconciled Will start the patient on Losartan 50mg once a day Will add Coreg if necessary (4) T2DM (type 2 diabetes mellitus) Current Visit: Yes Status: Chronic Qualifiers: Diabetes mellitus fdc insulin use: unspecified fdc insulin use status Plan to address problem: Accuchecks AC and HS Sliding scale coverage with high dose Humalog Check Hb A1C (5) Dyslipidemia Current Visit: Yes Status: Chronic Plan to address problem: Patient initiated on Crestor 10mg PO QD (6) DVT prophylaxis Current Visit: Yes Status: Acute Plan to address problem: On anticoagulation and GI prophylaxis (7) Advance care planning Current Visit: Yes Status: Acute Plan to address problem: Disease management discussed; diagnosis, prognosis discussed with the patient. Care plan discussed; patient acknowledged care plan Subjective Date of service: 01/15/22 Principal diagnosis: CHF exacerbation Interval history: Awildae 89-year-old -[place]izen [place] pleasant male with history of hypertension, PAD, chronic kidney disease, diabetes BPH and symptomatic bradycardia/high-grade AV block/PPM and mild dementia comes in for removal lower extremity swelling for 2 weeks. Also shortness of breath on exertion. Patient was recently assessed on 01/08/2022 in the [facility]. Patient is not clear about his outpatient work-up in [facility] on 01/08/2023. Per daughter patient has bilateral lower extremity swelling and elevated creatinine. Patient is asked to follow-up as an outpatient with [facility]. Patient had a weight gain of almost 30 to 40 pounds in the last 1 or 2 weeks. No diuretics were prescribed. Patient was referred from [facility] heart specialists/[place] for direct admi ssion. No fever or chills. Shortness of breath on exertion present. But no orthopnea. 01/15/22 Symptomatically better Cardiology consult appreciated Objective - Constitutional Vitals: Vital Signs - 12hr 01/16/22 01/16/22 01/16/22 08:40 09:53 14:00 Temperature 98.2 F Pulse Rate 95 H Pulse Rate [ 89 Anterior Bilateral Throughout] Respiratory 17 Rate Respiratory 16 Rate [Anterior Bilateral Throughout] Blood Pressure 120/72 [Left] O2 Sat by Pulse 98 Oximetry 01/16/22 14:49 Temperature Pulse Rate Pulse Rate [ 80 Anterior Bilateral Throughout] Respiratory Rate Respiratory 18 Rate [Anterior Bilateral Throughout] Blood Pressure [Left] O2 Sat by Pulse Oximetry General appearance: Present: no acute distress, well-nourished - EENT Eyes: PERRL, EOM intact ENT: hearing intact, clear oral mucosa Ears: bilateral: normal - Neck Neck: supple, normal ROM - Respiratory Respiratory effort: normal Respiratory: bilateral: CTA - Breasts Breasts: normal - Cardiovascular Heart rate: 78 Rhythm: regular Heart Sounds: Present: S1 & S2, diastolic murmur. Absent: gallop, rub Extremities: pulses intact, No edema, normal color, Full ROM - Gastrointestinal General gastrointestinal: Present: soft, non-tender, non-distended, normal bowel sounds - Genitourinary Female genitourinary: normal - Integumentary Integumentary: clear, warm, dry - Musculoskeletal Musculoskeletal: 1, strength equal bilaterally - Neurologic Neurologic: moves all extremities - Psychiatric Psychiatric: memory intact, appropriate mood/affect, intact judgment & insight - Labs CBC & Chem 7: 01/12/22 04:29 01/13/22 03:50 Labs: Abnormal lab results 01/15/22 01/16/22 Range/Units 21:10 06:58 POC Glucose 206 H 152 H (70-105) mg/dL HEART Score - HEART Score Age: 45-65 Risk factors: > 3 risk factors or hx of atherosclerotic disease Troponin: Troponin T < 0.010 ng/mL (0.00-0.029) 01/13/22 00:13 - Critical Actions Critical Actions: 4-6 pts:12-16.6% risk of adverse cardiac event. Should be admitted
--- NOTE | 2022-01-16 15:52 | Progress Note ---
Assessment and Plan - Patient Problems (1) Acute respiratory failure with hypoxia Current Visit: Yes Status: Acute Plan to address problem: Improved (2) Acute exacerbation of CHF (congestive heart failure) Current Visit: Yes Status: Acute Qualifiers: Heart failure type: combined systolic and diastolic Qualified Code(s): I50. 43 - Acute on chronic combined systolic (congestive) and diastolic (congestive) heart failure Plan to address problem: Patient admitted for CHF exacerbation Echocardiogram done on this presentation was reviewed by me. There is normal to hyperdynamic left ventricular systolic function with ejection fraction greater than 65%. There is moderate, concentric left ventricular per trophy. The left atrium is only borderline dilated. There is marked calcification of the mitral annulus and marked thickening of the mitral valve leaflets. A transmitral valve gradient of 4.7 mmHg is consistent with mild mitral stenosis. There is mild mitral regurgitation, mild aortic regurgitation and at least moderate tricuspid regurgitation. Patient with no prior cardiac history, presents with symptoms and x-ray evidence of acute interstitial edema. Echocardiogram shows normal to hyperdynamic left ventricular systolic function with ejection fraction greater than 65%, but evidence of at least mild mitral stenosis. Reduce diuretic therapy at this time, to avoid excessive preload reduction. Right and left heart catheterization scheduled for Tuesday. (3) Hypertension Current Visit: Yes Status: Chronic Qualifiers: Hypertension type: primary hypertension Qualified Code(s): I10 - Essential (primary) hypertension Plan to address problem: Patient not on any blood pressure medication No home medications reconciled Will start the patient on Losartan 50mg once a day Will add Coreg if necessary (4) T2DM (type 2 diabetes mellitus) Current Visit: Yes Status: Chronic Qualifiers: Diabetes mellitus fdc insulin use: unspecified fdc insulin use status Plan to address problem: Accuchecks AC and HS Sliding scale coverage with high dose Humalog Check Hb A1C (5) Dyslipidemia Current Visit: Yes Status: Chronic Plan to address problem: Patient initiated on Crestor 10mg PO QD (6) DVT prophylaxis Current Visit: Yes Status: Acute Plan to address problem: On anticoagulation and GI prophylaxis (7) Advance care planning Current Visit: Yes Status: Acute Plan to address problem: Disease management discussed; diagnosis, prognosis discussed with the patient. Care plan discussed; patient acknowledged care plan Subjective Date of service: 01/16/22 Principal diagnosis: CHF exacerbation Interval history: Awildae 89-year-old -Pakistani pleasant male with history of hypertension, PAD, chronic kidney disease, diabetes BPH and symptomatic bradycardia/high-grade AV block/PPM and mild dementia comes in for removal lower extremity swelling for 2 weeks. Also shortness of breath on exertion. Patient was recently assessed on 01/08/2022 in the [facility]. Patient is not clear about his outpatient work-up in [facility], [place] on 01/08/2023. Per daughter patient has bilateral lower extremity swelling and elevated creatinine. Patient is asked to follow-up as an outpatient with [facility]. Patient had a weight gain of almost 30 to 40 pounds in the last 1 or 2 weeks. No diuretics were prescribed. Patient was referred from [facility] specialists/[place] for direct admi ssion. No fever or chills. Shortness of breath on exertion present. But no orthopnea. 01/15/22 Symptomatically better Cardiology consult appreciated 01/16/2022 Symptomatically better Cardiac cath on 01/18/2022 Diuretics decreased Objective - Constitutional Vitals: Vital Signs - 12hr 01/16/22 01/16/22 01/16/22 08:40 09:53 14:00 Temperature 98.2 F Pulse Rate 95 H Pulse Rate [ 89 Anterior Bilateral Throughout] Respiratory 17 Rate Respiratory 16 Rate [Anterior Bilateral Throughout] Blood Pressure 120/72 [Left] O2 Sat by Pulse 98 Oximetry 01/16/22 14:49 Temperature Pulse Rate Pulse Rate [ 80 Anterior Bilateral Throughout] Respiratory Rate Respiratory 18 Rate [Anterior Bilateral Throughout] Blood Pressure [Left] O2 Sat by Pulse Oximetry General appearance: Present: no acute distress, well-nourished - EENT Eyes: PERRL, EOM intact ENT: hearing intact, clear oral mucosa Ears: bilateral: normal - Neck Neck: supple, normal ROM - Respiratory Respiratory effort: normal Respiratory: bilateral: CTA - Breasts Breasts: normal - Cardiovascular Heart rate: 78 Rhythm: regular Heart Sounds: Present: S1 & S2. Absent: gallop, rub Extremities: pulses intact, No edema, normal color, Full ROM - Gastrointestinal General gastrointestinal: Present: soft, non-tender, non-distended, normal bowel sounds - Genitourinary Female genitourinary: normal - Integumentary Integumentary: clear, warm, dry - Musculoskeletal Musculoskeletal: 1, strength equal bilaterally - Neurologic Neurologic: moves all extremities - Psychiatric Psychiatric: memory intact, appropriate mood/affect, intact judgment & insight - Labs CBC & Chem 7: 01/12/22 04:29 01/13/22 03:50 Labs: Abnormal lab results 01/15/22 01/16/22 Range/Units 21:10 06:58 POC Glucose 206 H 152 H (70-105) mg/dL HEART Score - HEART Score Age: 45-65 Risk factors: > 3 risk factors or hx of atherosclerotic disease Troponin: Troponin T < 0.010 ng/mL (0.00-0.029) 01/13/22 00:13 - Critical Actions Critical Actions: 4-6 pts:12-16.6% risk of adverse cardiac event. Should be admitted
[2022-01-17] MEDS: MORPHINE 2 MG/1 ML INJ IV PRN (01:00)
[2022-01-17] MEDS: INSULIN LISPRO 100 UNIT/ML SUB-Q SCH ×4 (08:19→21:11)
--- NOTE | 2022-01-17 09:35 | Progress Note ---
Assessment and Plan Heart failure preserved ejection fraction, no evidence of acute decompensation. Cocaine abuse. Echocardiogram this admission revealing preserved ejection fraction. Patient is euvolemic and asymptomatic. Plan for left and right heart cath in a.m. patient is agreeable to proceed. Subjective Date of service: 01/17/22 Principal diagnosis: CHF exacerbation Interval history: Patient denies any chest pain or shortness of breath. No arrhythmias recorded on telemetry. Objective Vital Signs Temp Pulse Pulse Resp Resp BP BP 01/17/22 07:42 87 128/74 01/17/22 03:48 98.3 F 87 16 140/80 01/16/22 22:55 98.5 F 92 H 16 133/69 01/16/22 22:00 01/16/22 20:52 96 H 20 01/16/22 19:37 98.3 F 102 H 16 125/79 01/16/22 17:02 98.1 F 86 17 124/68 01/16/22 14:49 80 18 01/16/22 14:00 01/16/22 09:53 89 16 Pulse Ox 01/17/22 07:42 92 01/17/22 03:48 92 01/16/22 22:55 92 01/16/22 22:00 98 01/16/22 20:52 01/16/22 19:37 96 01/16/22 17:02 98 01/16/22 14:49 01/16/22 14:00 98 01/16/22 09:53 - Physical Examination HEENT: Positive: PERRL, EOMI Neck: Positive: neck supple Cardiac: Positive: Reg Rate and Rhythm Lungs: Positive: Normal Exam Neuro: Positive: Grossly Intact Abdomen: Positive: Soft Skin: Positive: Clear Extremities: Absent: edema - Imaging and Cardiology EKG: report reviewed (Sinus rhythm, biatrial enlargement and LVH by voltage criteria)
[2022-01-17] MEDS: IPRATROPIUM 0.02% NEBU 2.5 ML IH SCH ×3 (09:45→20:43)
[2022-01-17] MEDS: POTASSIUM CHLORIDE ER 10 MEQ TAB PO SCH (10:09)
[2022-01-17] MEDS: glipiZIDE XL 5 MG TAB PO SCH (10:09)
[2022-01-17] MEDS: FAMOTIDINE 10 MG TAB PO SCH ×2 (10:09→21:38)
[2022-01-17] MEDS: FUROSEMIDE 40 MG TAB PO SCH (10:09)
[2022-01-17] MEDS: metFORMIN 500 MG TAB PO SCH ×2 (10:09→17:25)
[2022-01-17] MEDS: SPIRONOLACTONE 50 MG TAB PO SCH (10:09)
[2022-01-17] MEDS: NICOTINE 21 MG/24 HR PATCH TD SCH (10:09)
[2022-01-17] MEDS: HEPARIN 5,000 UNIT/1 ML VIAL SUB-Q SCH ×2 (10:10→21:38)
[2022-01-17] MEDS: ASPIRIN EC 81 MG TAB PO SCH (10:10)
[2022-01-17] MEDS ORDERED: SODIUM CHLORIDE 0.9% 500 ML 500 ML IV SCH (14:00)
--- NOTE | 2022-01-17 15:15 | Electrocardiograph Report ---
[facility] Test Date: 2022-01-16 Test Time: 06:59:31 Pat Name: NORY REESE Department: Room: A481 1 Gender: F Drop Forger: WHITNEY : 1965 Requested By: SAIRA SHAFFER Order Number: [id number] Reading MD: Dimitrios Corbin Measurements Intervals [place] Rate: 93 P: 60 [place]: 174 QRS: 66 QRSD: 84 T: 77 QT: 360 QTc: 449 Interpretive Statements Sinus rhythm LAE, consider biatrial enlargement Probable anterior infarct, old Compared to ECG 01/12/2022 04:10:35 Myocardial infarct finding now present Electronically Signed On 01-17-2022 15:15:08 EDT by Dimitrios Corbin
--- NOTE | 2022-01-18 06:19 | Progress Note ---
Assessment and Plan - Patient Problems (1) Acute respiratory failure with hypoxia Current Visit: Yes Status: Acute Plan to address problem: Improved (2) Acute exacerbation of CHF (congestive heart failure) Current Visit: Yes Status: Acute Qualifiers: Heart failure type: combined systolic and diastolic Qualified Code(s): I50. 43 - Acute on chronic combined systolic (congestive) and diastolic (congestive) heart failure Plan to address problem: Patient admitted for CHF exacerbation Echocardiogram done on this presentation was reviewed by me. There is normal to hyperdynamic left ventricular systolic function with ejection fraction greater than 65%. There is moderate, concentric left ventricular per trophy. The left atrium is only borderline dilated. There is marked calcification of the mitral annulus and marked thickening of the mitral valve leaflets. A transmitral valve gradient of 4.7 mmHg is consistent with mild mitral stenosis. There is mild mitral regurgitation, mild aortic regurgitation and at least moderate tricuspid regurgitation. Patient with no prior cardiac history, presents with symptoms and x-ray evidence of acute interstitial edema. Echocardiogram shows normal to hyperdynamic left ventricular systolic function with ejection fraction greater than 65%, but evidence of at least mild mitral stenosis. Reduce diuretic therapy at this time, to avoid excessive preload reduction. Right and left heart catheterization scheduled for Tuesday. (3) Hypertension Current Visit: Yes Status: Chronic Qualifiers: Hypertension type: primary hypertension Qualified Code(s): I10 - Essential (primary) hypertension Plan to address problem: Patient not on any blood pressure medication No home medications reconciled Will start the patient on Losartan 50mg once a day Will add Coreg if necessary (4) T2DM (type 2 diabetes mellitus) Current Visit: Yes Status: Chronic Qualifiers: Diabetes mellitus alf insulin use: unspecified alf insulin use status Plan to address problem: Accuchecks AC and HS Sliding scale coverage with high dose Humalog Check Hb A1C (5) Dyslipidemia Current Visit: Yes Status: Chronic Plan to address problem: Patient initiated on Crestor 10mg PO QD (6) DVT prophylaxis Current Visit: Yes Status: Acute Plan to address problem: On anticoagulation and GI prophylaxis (7) Advance care planning Current Visit: Yes Status: Acute Plan to address problem: Disease management discussed; diagnosis, prognosis discussed with the patient. Care plan discussed; patient acknowledged care plan Subjective Date of service: 01/17/22 Principal diagnosis: CHF exacerbation Interval history: Awildae 89-year-old -Beninese pleasant male with history of hypertension, PAD, chronic kidney disease, diabetes BPH and symptomatic bradycardia/high-grade AV block/PPM and mild dementia comes in for removal lower extremity swelling for 2 weeks. Also shortness of breath on exertion. Patient was recently assessed on 01/08/2022 in the [facility]. Patient is not clear about his outpatient work-up in [facility] on 01/08/2023. Per daughter patient has bilateral lower extremity swelling and elevated creatinine. Patient is asked to follow-up as an outpatient with [facility]. Patient had a weight gain of almost 30 to 40 pounds in the last 1 or 2 weeks. No diuretics were prescribed. Patient was referred from [facility] specialists/[place] for direct admi ssion. No fever or chills. Shortness of breath on exertion present. But no orthopnea. 01/15/22 Symptomatically better Cardiology consult appreciated 01/16/2022 Symptomatically better Cardiac cath on 01/18/2022 Diuretics decreased 01/17/2022 Symptomatically better CHF improved Mitral stenosis RHC and LHC today Discharge if cardiac cath is normal Objective - Constitutional Vitals: Vital Signs - 12hr 01/17/22 01/17/22 01/17/22 19:44 20:45 22:00 Temperature 98.5 F Pulse Rate 96 H 91 H Pulse Rate [ 94 H Anterior Bilateral Throughout] Respiratory 18 Rate Respiratory 20 Rate [Anterior Bilateral Throughout] Blood Pressure 142/75 O2 Sat by Pulse 98 99 Oximetry 01/18/22 01/18/22 04:25 04:26 Temperature 98.3 F 98.3 F Pulse Rate 89 87 Pulse Rate [ Anterior Bilateral Throughout] Respiratory 18 Rate Respiratory Rate [Anterior Bilateral Throughout] Blood Pressure 138/78 O2 Sat by Pulse 98 98 Oximetry General appearance: Present: no acute distress, well-nourished - EENT Eyes: PERRL, EOM intact ENT: hearing intact, clear oral mucosa Ears: bilateral: normal - Neck Neck: supple, normal ROM - Respiratory Respiratory effort: normal Respiratory: bilateral: CTA - Breasts Breasts: normal - Cardiovascular Heart rate: 78 Rhythm: regular Heart Sounds: Present: S1 & S2. Absent: gallop, rub Extremities: pulses intact, No edema, normal color, Full ROM - Gastrointestinal General gastrointestinal: Present: soft, non-tender, non-distended, normal bowel sounds - Genitourinary Female genitourinary: normal - Integumentary Integumentary: clear, warm, dry - Musculoskeletal Musculoskeletal: 1, strength equal bilaterally - Neurologic Neurologic: moves all extremities - Psychiatric Psychiatric: memory intact, appropriate mood/affect, intact judgment & insight - Labs CBC & Chem 7: 01/12/22 04:29 01/13/22 03:50 Labs: Abnormal lab results 01/17/22 01/17/22 01/17/22 Range/Units 11:47 15:35 20:27 POC Glucose 173 H 298 H 120 H (70-105) mg/dL HEART Score - HEART Score Age: 45-65 Risk factors: > 3 risk factors or hx of atherosclerotic disease Troponin: Troponin T < 0.010 ng/mL (0.00-0.029) 01/13/22 00:13 - Critical Actions Critical Actions: 4-6 pts:12-16.6% risk of adverse cardiac event. Should be admitted
[2022-01-18] MEDS: ALBUTEROL 2.5 MG/3 ML NEBU IH PRN (08:15)
[2022-01-18] MEDS: IPRATROPIUM 0.02% NEBU 2.5 ML IH SCH ×3 (08:15→22:50)
[2022-01-18] MEDS ORDERED: HEPARIN 10,000 UNITS/10 ML VIAL ONE (08:39)
[2022-01-18 08:49] LABS: Blood Urea Nitrogen 28 mg/dL (7-17); Calcium 9.6 mg/dL (8.4-10.2); Hemolysis Index 19
[2022-01-18 08:56] LABS: BUN/Creatinine Ratio 40
[2022-01-18 09:07] VITALS: BP 123/82
[2022-01-18] MEDS: ASPIRIN EC 81 MG TAB PO SCH (09:17)
[2022-01-18] MEDS: MIDAZOLAM 2 MG/2 ML INJ ONE ×2 (09:27→10:47)
[2022-01-18] MEDS: fentaNYL 100 MCG/2 ML INJ ONE ×2 (09:27→10:46)
[2022-01-18] MEDS: LIDOCAINE (2%) 20 MG/1 ML VIAL 50 ML MDV INFILTRATI ONE ×2 (09:28→10:48)
[2022-01-18] MEDS: HEPARIN/NS 5000 UNIT/500ML 1,000 ML IR ONE ×2 (09:28→10:50)
[2022-01-18] MEDS: SODIUM CHLORIDE 0.9% 500 ML 500 ML ONE ×2 (09:28→10:47)
--- NOTE | 2022-01-18 11:58 | Event Note ---
Date: 01/18/22 Patient underwent right and left heart catheterization, no complications. We found: 1. Angiographically normal coronary arteries. 2. Normal to hyperdynamic left ventricular systolic function with ejection fraction greater than 65%. 3. At least moderate mitral stenosis with a mean transmitral gradient of 9.1 and the mitral valve area of 1.78. Patient is stable for cardiac discharge with outpatient follow-up of mitral stenosis.
[2022-01-18] MEDS ORDERED: traMADol 50 MG TAB PO PRN (12:05)
--- NOTE | 2022-01-18 12:12 | Cardiac Catherization Report ---
DATE OF SERVICE: 01/18/2022 CARDIAC CATHETERIZATION REPORT REASON FOR PROCEDURE: The patient is a 56-year-old woman who presented with congestive heart failure. Echocardiogram demonstrated a transmitral gradient consistent with mild to moderate mitral stenosis. She was referred for right and left heart catheterization for further assessment of heart failure and mitral valve disease. PROCEDURES: 1. Left heart catheterization. 2. Right heart catheterization. 3. Selective left and right coronary angiography. 4. Left ventricular angiography. 5. Sedation time start 10:47, end 11:05. DESCRIPTION OF PROCEDURE: The patient was prepped and draped in a sterile fashion after informed consent. The right femoral artery and vein were both entered using Seldinger technique. A 6-Libyan sheath was inserted into the artery and an 8-Libyan sheath in the vein. A Stamps-Yen catheter was then advanced to the pulmonary artery position. A pigtail catheter was advanced into the left ventricle. Cardiac output was measured using the thermodilution method. We then measured simultaneous right and left heart filling pressures. The Stamps-Yen catheter was then withdrawn and right heart pressures measured on pullback. Left ventricular angiography was performed following which the pigtail catheter was withdrawn across the aortic valve and transaortic gradient recorded. Finally, selective left and right coronary angiography was performed using a #4 left Gurinder and a #4 right Gurinder. The catheters were then removed, sheaths removed, hemostasis over the arterial site using an Angio-Seal device and over the venous site using manual compression. The patient was returned to the postprocedure unit in stable condition. There were no complications. FINDINGS: HEMODYNAMICS: Mean right atrial pressure was 15-18. Right ventricular pressure was 52/20. Pulmonary artery pressure was 55/30. The mean pulmonary artery wedge pressure was 30. Cardiac output was 4.93 liters per minute. Left ventricular end-diastolic pressure was 25. Ascending aortic pressure was 135/85. There was no significant pressure gradient on pullback across the aortic valve. Mitral valve stenosis: Simultaneous left ventricular end-diastolic and pulmonary artery wedge pressures revealed a mean mitral valve gradient of 9.1 mmHg. Using the Gorlin equation, the mitral valve area was calculated at 1.78 square cm. CORONARY ANGIOGRAPHY: The left main coronary artery was angiographically normal. The left anterior descending artery and its diagonal branches were angiographically normal. The circumflex artery and its obtuse marginal branches were angiographically normal. The circumflex and right coronary arteries were codominant. The right coronary artery was of relatively small caliber, but also angiographically normal. There was hyperdynamic left ventricular systolic function with ejection fraction greater than 65-70% following an extrasystolic beat. CONCLUSION: 1. Moderate mitral stenosis, with a mean mitral valve gradient of 9.1 mmHg, and the mitral valve area of 1.78 square cm. 2. Moderate pulmonary hypertension. 3. Angiographically normal coronary arteries. 4. Normal to hyperdynamic left ventricular systolic function. RECOMMENDATIONS: 1. Risk factor modification and medical therapy. 2. Further noninvasive assessment and followup of mitral valve disease as indicated. TID: [id number] RECEIPT: [id number] JOSE G
[2022-01-18] MEDS ORDERED: SODIUM CHLORIDE 0.9% 1000 ML 1,000 ML IV SCH (12:15)
[2022-01-18] MEDS: INSULIN LISPRO 100 UNIT/ML SUB-Q SCH ×3 (18:28→21:41)
[2022-01-18] MEDS: metFORMIN 500 MG TAB PO SCH ×2 (18:28→19:26)
[2022-01-18] MEDS: HEPARIN 5,000 UNIT/1 ML VIAL SUB-Q SCH ×2 (19:26→21:40)
[2022-01-18] MEDS: NICOTINE 21 MG/24 HR PATCH TD SCH (19:26)
[2022-01-18] MEDS: glipiZIDE XL 5 MG TAB PO SCH (19:26)
[2022-01-18] MEDS: FUROSEMIDE 40 MG TAB PO SCH (19:27)
[2022-01-18] MEDS: FAMOTIDINE 10 MG TAB PO SCH ×2 (19:27→21:40)
[2022-01-18] MEDS: VERAPAMIL ER 120 MG TAB PO SCH (19:27)
[2022-01-18] MEDS: POTASSIUM CHLORIDE ER 10 MEQ TAB PO SCH (19:27)
[2022-01-19] MEDS ORDERED: ZOLPIDEM 5 MG TAB PO PRN (00:45)
[2022-01-19] MEDS: SPIRONOLACTONE 50 MG TAB PO SCH (07:56)
[2022-01-19] MEDS: IPRATROPIUM 0.02% NEBU 2.5 ML IH SCH ×2 (08:00→13:36)
[2022-01-19] MEDS ORDERED: FUROSEMIDE 20 MG TAB PO SCH (10:00)
[2022-01-19] MEDS: POTASSIUM CHLORIDE ER 10 MEQ TAB PO SCH (10:48)
[2022-01-19] MEDS: NICOTINE 21 MG/24 HR PATCH TD SCH (10:48)
[2022-01-19] MEDS: metFORMIN 500 MG TAB PO SCH (10:48)
[2022-01-19] MEDS: glipiZIDE XL 5 MG TAB PO SCH (10:48)
[2022-01-19] MEDS: VERAPAMIL ER 120 MG TAB PO SCH (10:48)
[2022-01-19] MEDS: ASPIRIN EC 81 MG TAB PO SCH (10:48)
[2022-01-19] MEDS: HEPARIN 5,000 UNIT/1 ML VIAL SUB-Q SCH (10:49)
[2022-01-19] MEDS: INSULIN LISPRO 100 UNIT/ML SUB-Q SCH ×2 (10:49→12:29)
[2022-01-19] MEDS: FAMOTIDINE 10 MG TAB PO SCH (10:49)
--- NOTE | 2022-01-19 11:39 | Progress Note ---
Assessment and Plan - Patient Problems (1) Acute exacerbation of CHF (congestive heart failure) Current Visit: Yes Status: Acute Qualifiers: Heart failure type: combined systolic and diastolic Qualified Code(s): I50.43 - Acute on chronic combined systolic (congestive) and diastolic (congestive) heart failure Plan to address problem: Strict I's/O, monitoring output every shift, daily weight, afterload reduction, blood pressure control, (2) Acute respiratory failure with hypoxia Current Visit: Yes Status: Acute Plan to address problem: Resolved (3) Dyslipidemia Current Visit: Yes Status: Chronic Plan to address problem: Low-cholesterol diet, supportive care. (4) Hypertension Current Visit: Yes Status: Chronic Qualifiers: Hypertension type: primary hypertension Qualified Code(s): I10 - Essential (primary) hypertension Plan to address problem: Monitor blood pressure every shift, continue medical management. (5) T2DM (type 2 diabetes mellitus) Current Visit: Yes Status: Chronic Qualifiers: Diabetes mellitus joint terminal attack controller insulin use: unspecified joint terminal attack controller insulin use status Plan to address problem: Insulin protocol, hypoglycemia protocol, Accu-Chek. (6) DVT prophylaxis Current Visit: Yes Status: Acute Plan to address problem: SCD to bilateral lower extremities while in bed (7) Advance care planning Current Visit: Yes Status: Acute Plan to address problem: Disease education conducted, care plan discussed, diagnoses discussed, prognosis discussed, +30 minutes. (8) Preventative health care Current Visit: Yes Status: Acute Plan to address problem: Patient counseled regarding medication compliance, risk factor reduction, outpatient follow-up with primary care physician for all age and risk factor appropriate screening test. +30 minutes. History Interval history: 56-year-old female hospital day 3 with acute onset CHF complicated by acute hypoxemic respiratory failure, hypertension, diabetes. Patient resting comfortably. Patient denies pain. No reported nursing events. Patient pending cardiac cath in a.m. Discharge planning in a.m. Hospitalist Physical - Constitutional Vitals: Temp Pulse Resp BP Pulse Ox 98.3 F 81 18 123/82 99 01/18/22 08:53 01/18/22 22:00 01/18/22 20:00 01/18/22 08:53 01/18/22 22:00 General appearance: Present: no acute distress, well-nourished - EENT Eyes: Present: PERRL ENT: hearing intact - Neck Neck: Present: supple - Respiratory Respiratory effort: normal Respiratory: bilateral: diminished, rales - Cardiovascular Rhythm: regular Heart Sounds: Present: S1 & S2 - Extremities Extremities: no ischemia Peripheral Pulses: within normal limits - Abdominal General gastrointestinal: soft, non-tender, non-distended - Integumentary Integumentary: Present: clear, dry - Psychiatric Psychiatric: cooperative - Neurologic Neurologic: CNII-XII intact HEART Score - HEART Score Age: 45-65 Risk factors: > 3 risk factors or hx of atherosclerotic disease Troponin: Troponin T < 0.010 ng/mL (0.00-0.029) 01/13/22 00:13 - Critical Actions Critical Actions: 4-6 pts:12-16.6% risk of adverse cardiac event. Should be admitted Results - Labs CBC & Chem 7: 01/12/22 04:29 01/18/22 08:29 Labs: Laboratory Last Values WBC 9.3 K/mm3 (4.5-11.0) 01/12/22 04:29 RBC 5.05 M/mm3 (3.65-5.03) H 01/12/22 04:29 Hgb 14.6 gm/dl (10.1-14.3) H 01/12/22 04:29 Hct 44.6 % (30.3-42.9) H 01/12/22 04:29 MCV 88 fl (79-97) 01/12/22 04:29 MCH 29 pg (28-32) 01/12/22 04:29 MCHC 33 % (30-34) 01/12/22 04:29 RDW 15.4 % (13.2-15.2) H 01/12/22 04:29 Plt Count 259 K/mm3 (140-440) 01/12/22 04:29 Lymph % (Auto) 37.5 % (13.4-35.0) H 01/12/22 04:29 [place] % (Auto) 6.3 % (0.0-7.3) 01/12/22 04:29 Eos % (Auto) 2.5 % (0.0-4.3) 01/12/22 04:29 Baso % (Auto) 0.3 % (0.0-1.8) 01/12/22 04:29 Lymph # (Auto) 3.5 K/mm3 (1.2-5.4) 01/12/22 04:29 [place] # (Auto) 0.6 K/mm3 (0.0-0.8) 01/12/22 04:29 Eos # (Auto) 0.2 K/mm3 (0.0-0.4) 01/12/22 04:29 Baso # (Auto) 0.0 K/mm3 (0.0-0.1) 01/12/22 04:29 Seg Neutrophils % 53.4 % (40.0-70.0) 01/12/22 04:29 Seg Neutrophils # 5.0 K/mm3 (1.8-7.7) 01/12/22 04:29 PT 13.9 Sec. (12.2-14.9) 01/12/22 04:29 INR 0.97 (0.87-1.13) 01/12/22 04:29 D-Dimer 242.29 ng/mlDDU (0-234) H 01/12/22 04:29 Sodium 138 mmol/L (137-145) 01/18/22 08:29 Potassium 4.9 mmol/L (3.6-5.0) 01/18/22 08:29 Chloride 100.9 mmol/L (98-107) 01/18/22 08:29 Carbon Dioxide 29 mmol/L (22-30) 01/18/22 08:29 Anion Gap 13 mmol/L 01/18/22 08:29 BUN 28 mg/dL (7-17) H 01/18/22 08:29 Creatinine 0.7 mg/dL (0.6-1.2) 01/18/22 08:29 Estimated GFR > 60 ml/min 01/18/22 08:29 BUN/Creatinine Ratio 40 % 01/18/22 08:29 Glucose 93 mg/dL (65-100) 01/18/22 08:29 POC Glucose 244 mg/dL (70-105) H 01/19/22 11:09 Hemoglobin A1c 7.8 % (4-6) H 01/13/22 05:18 Lactic Acid 2.00 mmol/L (0.7-2.0) 01/12/22 04:29 Calcium 9.6 mg/dL (8.4-10.2) 01/18/22 08:29 Magnesium 2.70 mg/dL (1.7-2.3) H 01/12/22 04:29 Total Bilirubin 0.20 mg/dL (0.1-1.2) 01/13/22 03:50 AST 23 units/L (5-40) 01/13/22 03:50 ALT 15 units/L (7-56) 01/13/22 03:50 Alkaline Phosphatase 135 units/L (35-129) H 01/13/22 03:50 Total Creatine Kinase 321 units/L (30-135) H 01/12/22 04:29 CK-MB (CK-2) 7.9 ng/mL (0.0-4.0) H 01/12/22 04:29 CK-MB (CK-2) Rel Index 2.4 (0-4) 01/12/22 04:29 Troponin T < 0.010 ng/mL (0.00-0.029) 01/13/22 00:13 NT-Pro-B Natriuret Pep 76.30 pg/mL (0-900) 01/12/22 04:29 Total Protein 7.4 g/dL (6.3-8.2) 01/13/22 03:50 Albumin 4.1 g/dL (3.9-5) 01/13/22 03:50 Albumin/Globulin Ratio 1.2 % 01/13/22 03:50 Lipase 21 units/L (13-60) 01/12/22 04:29 Urine Color Yellow (Yellow) 01/12/22 Unknown Urine Turbidity Slightly-cloudy (Clear) 01/12/22 Unknown Urine pH 5.0 (5.0-7.0) 01/12/22 Unknown Ur Specific [place] 1.021 (1.003-1.030) 01/12/22 Unknown Urine Protein 30 mg/dl mg/dL (Negative) 01/12/22 Unknown Urine Glucose (UA) 150 mg/dL (Negative) 01/12/22 Unknown Urine Ketones Neg mg/dL (Negative) 01/12/22 Unknown Urine Blood Sm (Negative) 01/12/22 Unknown Urine Nitrite Neg (Negative) 01/12/22 Unknown Urine Bilirubin Neg (Negative) 01/12/22 Unknown Urine Urobilinogen < 2.0 mg/dL (<2.0) 01/12/22 Unknown Ur Leukocyte Esterase Sm (Negative) 01/12/22 Unknown Urine WBC (Auto) 2.0 /HPF (0.0-6.0) 01/12/22 Unknown Urine RBC (Auto) 2.0 /HPF (0.0-6.0) 01/12/22 Unknown Urine Opiates Screen Presumptive negative 01/12/22 Unknown Urine Methadone Screen Presumptive negative 01/12/22 Unknown Ur Barbiturates Screen Presumptive negative 01/12/22 Unknown Ur Phencyclidine Scrn Presumptive negative 01/12/22 Unknown Ur Amphetamines Screen Presumptive negative 01/12/22 Unknown U Benzodiazepines Scrn Presumptive negative 01/12/22 Unknown Urine Cocaine Screen Presumptive positive 01/12/22 Unknown U Marijuana (THC) Screen Presumptive negative 01/12/22 Unknown Drugs of Abuse Note Disclamer 01/12/22 Unknown Gamez/IV: Voiding Method Toilet Active Medications - Current Medications Current Medications: Generic Name Dose Route Start Last Admin Trade Name Freq PRN Reason Stop Dose Admin Acetaminophen 650 mg 01/12/22 16:57 Acetaminophen 325 Mg Tab PO Q4H PRN Pain MILD(1-3)/Fever >100.5/IGLESIAS Albuterol 2.5 mg 01/13/22 02:06 01/18/22 08:15 Albuterol 2.5 Mg/3 Ml Nebu IH 2.5 mg Q4HRT PRN Administration Shortness Of Breath Aspirin 81 mg 01/16/22 10:00 01/19/22 10:48 Aspirin Ec 81 Mg Tab PO 81 mg QDAY ANGEL Administration Famotidine 10 mg 01/12/22 22:00 01/19/22 10:49 Famotidine 10 Mg Tab PO 10 mg BID ANGEL Administration Furosemide 20 mg 01/19/22 10:00 01/19/22 10:48 Furosemide 20 Mg Tab PO 20 mg QDAY ANGEL Administration Glipizide 5 mg 01/14/22 08:00 01/19/22 10:48 Glipizide Xl 5 Mg Tab PO 5 mg DAILY@0800 ANGEL Administration Heparin Sodium (Porcine) 5,000 unit 01/12/22 22:00 01/19/22 10:49 Heparin 5,000 Unit/1 Ml Vial SUB-Q 5,000 unit Q12HR ANGEL Administration Insulin Human Lispro 0 unit 01/13/22 13:00 01/19/22 10:49 Insulin Lispro 100 Unit/Ml SUB-Q Not Given ACHS [facility] Protocol Ipratropium [place] 0.5 mg 01/13/22 14:00 01/19/22 08:00 Ipratropium 0.02% Nebu 2.5 Ml IH Not Given TIDRT [facility] Metformin HCl 500 mg 01/14/22 08:00 01/19/22 10:48 Metformin 500 Mg Tab PO 500 mg BIDDIAB ANGEL Administration Metoclopramide HCl 10 mg 01/12/22 16:57 Metoclopramide 10 Mg/2 Ml Inj IV Q6H PRN Nausea And Vomiting Morphine Sulfate 2 mg 01/12/22 16:57 01/17/22 01:00 Morphine 2 Mg/1 Ml Inj IV 2 mg Q4H PRN Administration Pain, Moderate (4-6) Nicotine 21 mg 01/15/22 20:00 01/19/22 10:48 Nicotine 21 Mg/24 Hr Patch TD 21 mg QDAY [facility] Administration Ondansetron HCl 4 mg 01/12/22 16:57 Ondansetron 4 Mg/2 Ml Inj IV Q8H PRN Nausea And Vomiting Potassium Chloride 10 meq 01/16/22 10:00 01/19/22 10:48 Potassium Chloride Er 10 Meq Tab PO 10 meq QDAY [facility] Administration Sodium Chloride 10 ml 01/12/22 22:00 01/19/22 10:49 Sodium Chloride 0.9% 10 Ml Flush Syringe IV 10 ml BID ANGEL Administration Sodium Chloride 10 ml 01/12/22 16:57 Sodium Chloride 0.9% 10 Ml Flush Syringe IV PRN PRN LINE FLUSH Tramadol HCl 50 mg 01/18/22 12:05 Tramadol 50 Mg Tab PO Q4H PRN Pain, Mild (1-3) Verapamil HCl 120 mg 01/18/22 13:00 01/19/22 10:48 Verapamil Er 120 Mg Tab PO 120 mg QDAY [facility] Administration Zolpidem Tartrate 5 mg 01/19/22 00:45 01/19/22 01:48 Zolpidem 5 Mg Tab PO 5 mg QHS PRN Administration Sleep
--- NOTE | 2022-01-19 11:39 | Discharge Summary ---
Providers - Providers Date of Admission: 01/12/22 16:57 Attending physician: LAMBERTO VILLA 01/14/22 18:19 Consult to Physician [CONS] Routine Comment: Consulting Provider: SAIRA SHAFFER Physician Instructions: Reason For Exam: MV stenosis? 01/18/22 12:05 Consult to Cardiac Rehabilitation [CONS] Routine Reason For Exam: Cardiac Rehab Evaluation Primary care physician: HORSESHOER Hospitalization Condition: Stable Disposition: 30 STILL A PATIENT - Discharge Diagnoses (1) Acute exacerbation of CHF (congestive heart failure) Status: Acute Qualifiers: Heart failure type: combined systolic and diastolic Qualified Code(s): I50.43 - Acute on chronic combined systolic (congestive) and diastolic (congestive) heart failure (2) Acute respiratory failure with hypoxia Status: Acute (3) Dyslipidemia Status: Chronic (4) Hypertension Status: Chronic Qualifiers: Hypertension type: primary hypertension Qualified Code(s): I10 - Essential (primary) hypertension (5) T2DM (type 2 diabetes mellitus) Status: Chronic Qualifiers: Diabetes mellitus mcfp insulin use: unspecified mcfp insulin use status (6) DVT prophylaxis Status: Acute (7) Advance care planning Status: Acute (8) Preventative health care Status: Acute Exam - Constitutional Vitals: Temp Pulse Resp BP Pulse Ox 98.3 F 81 18 123/82 99 01/18/22 08:53 01/18/22 22:00 01/18/22 20:00 01/18/22 08:53 01/18/22 22:00 Plan Follow up with: PRIMARY CAREMD [Primary Care Provider] - 3-5 Days Prescriptions: Verapamil Sr [Calan SR] 120 mg PO DAILY #30 Furosemide [Lasix] 20 mg PO QDAY #30 tablet
[2022-01-19] MEDS: ALBUTEROL 2.5 MG/3 ML NEBU IH PRN (13:36)
--- NOTE | 2022-01-19 13:56 | Progress Note ---
Assessment and Plan - Patient Problems (1) Acute exacerbation of CHF (congestive heart failure) Current Visit: Yes Status: Acute Qualifiers: Heart failure type: combined systolic and diastolic Qualified Code(s): I50.43 - Acute on chronic combined systolic (congestive) and diastolic (congestive) heart failure Plan to address problem: Patient with no prior cardiac history, presents with symptoms and x-ray evidence of acute interstitial edema. Echocardiogram shows normal to hyperdynamic left ventricular systolic function with ejection fraction greater than 65%, but evidence of at least mild mitral stenosis. Patient underwent right and left heart catheterization, no complications. We found: 1. Angiographically normal coronary arteries. 2. Normal to hyperdynamic left ventricular systolic function with ejection fraction greater than 65%. 3. At least moderate mitral stenosis with a mean transmitral gradient of 9.1 and the mitral valve area of 1.78. Medical therapy as previously outlined, outpatient follow-up in our cardiology clinic in 7 to 10 days. Subjective Date of service: 01/19/22 Principal diagnosis: CHF exacerbation Interval history: Patient is comfortable, cardiac cath site is well-healed, no new cardiac events reported. Objective Vital Signs Pulse Pulse Resp Pulse Ox 01/19/22 13:36 87 18 01/18/22 22:00 81 99 01/18/22 20:00 86 18 - Physical Examination HEENT: Positive: PERRL, EOMI Neck: Positive: neck supple Cardiac: Positive: Reg Rate and Rhythm, Diastolic Murmur Lungs: Positive: Decreased Breath Sounds Neuro: Positive: Grossly Intact Abdomen: Positive: Soft Skin: Positive: Clear Extremities: Absent: edema - Imaging and Cardiology EKG: report reviewed (Sinus rhythm, biatrial enlargement and LVH by voltage criteria)
== END 2022-01-19 17:12 | disposition home or self-care (01) | DRG 286 ==
LOC: ED 04:04 → 4A 16:57
PROVIDERS: ADMIT Internal Medicine; ATTEND Internal Medicine
PROC: 4A033R1 Measurement of Arterial Saturation, Peripheral, Percutaneous Approach (ICD-10-PCS; 2022-01-12)
PROC: 4A023N7 Measurement of Cardiac Sampling and Pressure, Left Heart, Percutaneous Approach (ICD-10-PCS; principal; 2022-01-18)
PROC: B2111ZZ Fluoroscopy of Multiple Coronary Arteries using Low Osmolar Contrast (ICD-10-PCS; 2022-01-18)
PROC: B2151ZZ Fluoroscopy of Left Heart using Low Osmolar Contrast (ICD-10-PCS; 2022-01-18)
DX: I11.0 Hypertensive heart disease with heart failure (principal); J96.01 Acute respiratory failure with hypoxia; I50.43 Acute on chronic combined systolic (congestive) and diastolic (congestive) heart failure; E11.9 Type 2 diabetes mellitus without complications; E78.5 Hyperlipidemia, unspecified; J45.909 Unspecified asthma, uncomplicated; Z82.49 Family history of ischemic heart disease and other diseases of the circulatory system
CPT/HCPCS: 36415; 71045; 71275; 80048; 80053; 80307; 81001; 82140; 82550; 82553; 82962; 83036; 83690; 83735; 83880; 84484; 85025; 85379; 85610; 93005; 93306; 93460; 94640; 94644; 94760; G0378; J3490; Q9967; C1760; C1894; C8929; J1644; J1815; J1940; J2250; J2270; J3010; J7040